=== PATIENT | female | born 1950 | race Caucasian/White ===

== ENCOUNTER 2017-05-11 11:38 | Day surgery (SDC) | payer OTHER ==
[~2017-05-11] VITALS: Ht 165.1 cm; Wt 60.3 kg
[~2017-05-11 11:38] MED LIST: ADVIL200 MG PO; FLONASE16 G1 BOTH NARES
[2017-05-11 12:01] VITALS: BP 129/63
[2017-05-11 14:56] VITALS: BP 146/69
[2017-05-11 15:42] VITALS: BP 123/60
== END 2017-05-11 15:42 | disposition home or self-care (01) ==
LOC: SDC 11:38 → EDSTATUS 11:55 → SDC 13:17
DX: H35.371 Puckering of macula, right eye (principal); H35.341 Macular cyst, hole, or pseudohole, right eye; H35.30 Unspecified macular degeneration
CPT/HCPCS: J0690; J1100; J2795; J3300